=== PATIENT | female | born 1970 | race Two or more races ===

== ENCOUNTER 2016-05-31 08:02 | Emergency (ER) | payer MEDICAID ==
[~2016-05-31] VITALS: Ht 152.4 cm; Wt 93.0 kg
[2016-05-31 08:32] VITALS: BP 115/52
== END 2016-05-31 09:03 | disposition home or self-care (01) ==
LOC: ER 08:02
DX: H11.31 Conjunctival hemorrhage, right eye (principal); Z90.89 Acquired absence of other organs